=== PATIENT | female | born 1995 ===

== ENCOUNTER 2016-12-09 10:46 | Emergency (ER) | payer OTHER ==
[2016-12-09] MEDS ORDERED: Ketorolac INJ* 30 MG/ML 1 ML VIAL IV ONE (12:13)
[2016-12-09] MEDS ORDERED: NS 0.9% 1000 ML* 1,000 ML IV ONE (12:13)
[2016-12-09 13:05] LABS: Hematocrit 35 % (35-47); Mean Corpuscular HGB Conc 32 g/dl (31-36); Mean Corpuscular Hemoglobin 25 pg (27-31); Mean Corpuscular Volume 79 fL (80-97); Red Cell Distribution Width 30 % (10.5-15); White Blood Count 10.8 10^3/ul (3.5-10.8)
[2016-12-09 13:08] LABS: Comments Flag Yes
[2016-12-09 13:09] LABS: Add Diff/Slide Review? Slide Review Added
[2016-12-09 13:16] LABS: ALT 7 U/L (7-52); AST 12 U/L (13-39); Albumin 4.1 g/dL (3.2-5.2); Alkaline Phosphatase 34 U/L (34-104); Anion Gap 7 mmol/L (2-11); BUN/Creatinine Ratio 18.3 (8-20); Blood Urea Nitrogen 13 mg/dL (6-24); CO2 Carbon Dioxide 24 mmol/L (22-32); Calcium 9.3 mg/dL (8.6-10.3); Chloride 105 mmol/L (101-111); EGFR African American 131.2 (>60); Globulin 3.4 g/dL (2-4); Glucose 102 mg/dL (70-100); Potassium 3.8 mmol/L (3.5-5.0); Sodium 136 mmol/L (133-145); Total Protein 7.5 g/dL (6.4-8.9)
[2016-12-09 15:04] LABS: Urine Bacteria Absent (Absent); Urine Bilirubin Negative (Negative); Urine Glucose Negative (Negative); Urine Nitrite Negative (Negative)
--- NOTE | 2016-12-09 15:13 | ED ---
[employer] Karl, scribed for Wilfrido Rae MD on 12/09/16 at 1232 . Abdominal Pain/Female - HPI Summary HPI Summary: 21 y/o F c/o "very heavy" constant menstrual cramping and 10/10 pain for the past 3 days. Pt reported that last month she had abnormal period bleeding with excessive bleeding for half a month, stating she had to use control to stop the bleeding. Pt took 1000mg of ibuprofen [employer]IDENT C[employer]. Pt denied nausea, vomiting, fever, and chills. Hx: similar episode in the past. - History of Current Complaint Chief Complaint: EDAbdPain Stated Complaint: menstrual CRAMPS Time Seen by Provider: 12/09/16 12:11 Hx Obtained From: Patient Hx Last Menstrual Period: Now ?: No Onset/Duration: Gradual Onset, Lasting Days, Still Present Timing: Constant Severity Initially: Moderate Severity Currently: Moderate Pain Intensity: 10 - abd pain Pain Scale Used: 0-10 Numeric Location: Suprapubic Radiates: No Character: Cramping Aggravating Factor(s): Nothing Alleviating Factor(s): Nothing Associated Signs and Symptoms: Negative: Fever, Nausea, Vomiting Allergies/Adverse Reactions: Allergies Allergy/AdvReac Type Severity Reaction Status Date / Time No Known Allergies Allergy Verified 12/09/16 12:43 PMH/Surg Hx/FS Hx/Imm Hx Previously Healthy: Yes Infectious Disease History: No Infectious Disease History: Denies: Traveled Outside the [place] in Last 30 Days - Family History Known Family History: Negative: Cardiac Disease - Social History Alcohol Use: None Hx Substance Use: No Hx Tobacco Use: No Smoking Status (MU): Never Smoked Tobacco Review of Systems Negative: Fever, Chills Eyes: Negative ENT: Negative Cardiovascular: Negative Respiratory: Negative Positive: Abdominal Pain. Negative: Vomiting, Nausea Genitourinary: Negative Musculoskeletal: Negative Skin: Negative Neurological: Negative Psychological: Normal All Other Systems Reviewed And Are Negative: Yes Physical Exam - Summary Physical Exam Summary: VITAL SIGNS: Reviewed. GENERAL: Patient is a well developed and nourished female who is lying comfortable in the stretcher. Patient is not in any acute respiratory distress. HEAD AND FACE: Normocephalic and atraumatic. EYES: PERRLA, EOMI x 2, No injected conjunctiva. EARS: Hearing grossly intact. Ear canals and tympanic membranes are WNL. MOUTH: Oropharynx within normal limits. NECK: Supple, trachea is midline, no adenopathy, no JVD. CHEST: Symmetric, no tenderness at palpation LUNGS: Clear to auscultation bilaterally. No wheezing or crackles. CVS: RRR,, S1 and S2 present, no murmurs or gallops appreciated. ABDOMEN: Soft, non-tender. No signs of distention. Positive bowel sounds. No rebound no guarding, and no masses palpated. No abdominal bruit or pulsations. EXTREMITIES: FROM in all major joints, no edema, no cyanosis or clubbing. NEURO: Alert and oriented x 3. No acute neurological deficits. Speech is normal. SKIN: Dry and warm Vital Signs On Initial Exam: Initial Vitals Temp Pulse Resp BP Pulse Ox 99.1 F 78 16 106/63 100 12/09/16 11:10 12/09/16 11:10 12/09/16 11:10 12/09/16 11:10 12/09/16 11:10 Diagnostics - Vital Signs Vital Signs Temp Pulse Resp BP Pulse Ox 12/09/16 11:10 99.1 F 78 16 106/63 100 - Laboratory Result Diagrams: 12/09/16 12:43 12/09/16 12:43 Lab Statement: Any lab studies that have been ordered have been reviewed, and results considered in the medical decision making process. Abdominal Pain Fem Course/Dx - Course Course Of Treatment: Blood work shows hb 11, glucose 102, CRP 15.1. In the ED course she was given IV fluids and Toradol for the pain. exam is negative. I offered a pelvic exam but patient declines. Patient reports pain has improved after toradol. UA was contaminated therfore we will send for urine cultures and PMD will f/u resultes. I discussed all the findings and test results with the patient. Patient was instructed to return to the emergency room immediately if any of the symptoms return or worsens. They were explained the possibility of an early abdominal pathology which was not detected at this time despite the physical exam and testing. They understand and agree. Abdominal exam before discharge: Soft, NT. No signs of distention. BS present. No rebound no guarding, and no masses palpated. Patient is alert and oriented and hemodynamically stable. Patient is to follow up with primary care physician in the next 2 to 3 days. Patient agree and understands. - Diagnoses Differential Diagnosis: Positive: Constipation, , Urinary Tract Infection, Other - Menstrual cramping Provider Diagnoses: Menstrual cramps Discharge - Discharge Plan Condition: Stable Disposition: HOME Prescriptions: Naproxen TAB* [Naprosyn TAB*] 500 mg PO Q8H PRN #15 tab PRN Reason: Pain Referrals: [facility] ROBERTO CARLOS Martinez [Primary Care Provider] - The documentation as recorded by the Kolby sutton Karl accurately reflects the service I personally performed and the decisions made by , Wilfrido Rae MD.
[2016-12-09 15:48] VITALS: BP 110/64
== END 2016-12-09 15:46 | disposition home or self-care (01) ==
LOC: ED 10:46
DX: N94.6 Dysmenorrhea, unspecified (principal)
CPT/HCPCS: 36415; 80053; 81003; 81015; 84702; 85025; 86140; 96374; 99283; J1885